=== PATIENT | male | born 1985 | race African-American/Black ===

== ENCOUNTER 2018-01-18 13:42 | Emergency (ER) | payer SELFPAY ==
[2018-01-18 14:09] VITALS: BP 147/96
== END 2018-01-18 14:59 | disposition left against medical advice (07) ==
LOC: ER 13:42
DX: S61.250A Open bite of right index finger without damage to nail, initial encounter (principal); F12.10 Cannabis abuse, uncomplicated; F17.200 Nicotine dependence, unspecified, uncomplicated; Z53.21 Procedure and treatment not carried out due to patient leaving prior to being seen by health care provider; W64.XXXA Exposure to other animate mechanical forces, initial encounter; Y93.89 Activity, other specified; Y92.89 Other specified places as the place of occurrence of the external cause; Y99.8 Other external cause status

== ENCOUNTER 2018-12-16 22:44 | Emergency (ER) | payer SELFPAY | END 2018-12-17 01:33 | disposition left against medical advice (07) | LOC: ER 22:44 | DX: Z53.21 Procedure and treatment not carried out due to patient leaving prior to being seen by health care provider (principal) ==

== ENCOUNTER 2019-07-14 13:22 | Emergency (ER) | payer MEDICAID ==
[~2019-07-14] VITALS: Ht 190.5 cm; Wt 77.0 kg
[2019-07-14 13:24] VITALS: BP 140/90
[2019-07-14] MEDS ORDERED: KETOROLAC 30MG/ML VIAL IM ONE (14:45)
== END 2019-07-14 16:24 | disposition home or self-care (01) ==
LOC: ER 13:22
DX: S20.212A Contusion of left front wall of thorax, initial encounter (principal); W18.39XA Other fall on same level, initial encounter; Y93.89 Activity, other specified; Y92.89 Other specified places as the place of occurrence of the external cause; R03.0 Elevated blood-pressure reading, without diagnosis of hypertension
CPT/HCPCS: 71101; 96372; 99283; J1885

== ENCOUNTER 2019-07-24 09:18 | Emergency (ER) | payer MEDICAID ==
[~2019-07-24] VITALS: Ht 190.5 cm; Wt 94.0 kg
[2019-07-24] MEDS ORDERED: KETOROLAC 30MG/ML VIAL IM STA (09:41)
[2019-07-24] MEDS ORDERED: ONDANSETRON 4MG ODT PO ONE (09:45)
[2019-07-24] MEDS ORDERED: FAMOTIDINE 20MG TABLET PO ONE (09:45)
[2019-07-24 11:35] VITALS: BP 145/100
== END 2019-07-24 14:01 | disposition home or self-care (01) ==
LOC: ER 09:31
DX: R10.9 Unspecified abdominal pain (principal); F12.90 Cannabis use, unspecified, uncomplicated
CPT/HCPCS: 96372; 99283; J1885; Q0162

== ENCOUNTER 2019-07-24 18:48 | Emergency (ER) | payer MEDICAID ==
[~2019-07-24] VITALS: Ht 188 cm; Wt 88.4 kg
[2019-07-24 19:55] LABS: BASOPHILS % 0.5 % (0.0-2.0); EOSINOPHILS % 0.3 % (0.0-5.0); HEMATOCRIT. 29.1 % (42.0-52.0); HEMOGLOBIN. 10.1 g/dL (14.0-18.0); LYMPHOCYTES % 12.5 % (20.0-50.0); MEAN CORPUSCULAR HEMOGLOBIN 30.9 pg (28.0-32.0); MEAN CORPUSCULAR VOLUME 89.2 fL (80.0-94.0); MONOCYTES % 6.8 % (2.0-8.0); NEUTROPHILS % 79.9 % (40.0-76.0); PLATELET 314 x1000/uL (130-400); RED BLOOD CELL COUNT 3.27 mill/uL (4.7-6.1)
[2019-07-24 19:56] LABS: CHLORIDE 104 mEq/L (98-107)
[2019-07-25 11:24] VITALS: BP 133/88
== END 2019-07-25 15:27 | disposition home or self-care (01) ==
LOC: ER 18:48
DX: S20.212A Contusion of left front wall of thorax, initial encounter (principal); K52.9 Noninfective gastroenteritis and colitis, unspecified; X58.XXXA Exposure to other specified factors, initial encounter; Y93.89 Activity, other specified; Y92.89 Other specified places as the place of occurrence of the external cause; Y99.8 Other external cause status; F12.10 Cannabis abuse, uncomplicated; F15.10 Other stimulant abuse, uncomplicated
CPT/HCPCS: 36415; 80053; 85025; 99285